=== PATIENT | male | born 2000 | race Caucasian/White ===

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

== ENCOUNTER 2018-02-05 12:04 | Emergency (ER) | payer BC ==
[~2018-02-05] VITALS: Ht 188 cm; Wt 95.1 kg
[2018-02-05 12:05] VITALS: BP 159/74; PULSE 78; TEMP 36.7; O2SAT 95; Ht 188 cm; Wt 95.1 kg
--- NOTE | 2018-02-05 12:38 | DIAGNOSTIC IMAGING REPORT ---
THORACIC SPINE 3 VIEWS ROUTINE HISTORY: 17 years-old Male Lifting weights, mid back pain acute mid back pain status post lifting weights. COMPARISON: None available TECHNIQUE: 5 views of the thoracic spine FINDINGS: There is 11 degrees dextroscoliosis of the thoracic spine measured from T5-T10. No acute fracture or subluxation is identified. No significant intervertebral disc space narrowing or degenerative changes identified. No opaque foreign body. Imaged lung reynoso appear clear. IMPRESSION: 1. No acute fracture or subluxation. 2. Mild dextroscoliosis of the thoracic spine. The above report was generated using voice recognition software. It may contain grammatical, syntax or spelling errors. Electronically signed by: Carlos Carcamo M.D. 02/05/2018 12:36 PM Dictated Date/Time: 02/05/2018 12:34 PM
--- NOTE | 2018-02-05 12:46 | EMERGENCY ROOM VISIT NOTE ---
History First contact with patient: 12:08 Chief Complaint: BACK PAIN Stated Complaint: BACK PAIN,TROUBLE BREATHING AND MOVING History of Present Illness The patient is a 17 year old male who presents to the Emergency Room with complaints of "back pain, trouble breathing and moving". The patient states that yesterday while doing a squatting exercise and lifting weights he developed a pain in his mid back. He notes that it is in the musculature between the shoulder blades and just inferior to this region. It is worse with turning. He notes he takes a deep breath and it is worse. He rates the pain as a 3/10. He notes that he has had this in the past 5 or 6 times and is usually given a muscle relaxer. He denies any trauma or injury to the area he has not fallen. There is no chest pain. There is no hemoptysis. No leg swelling. He notes that the pain developed as he was doing the lifting exercise with the weights. Review of Systems A complete 10-point Review of Systems was discussed with the patient, with pertinent positives and negatives listed in the History of Present Illness. All remaining Review of Systems questions can be considered negative unless otherwise specified. Past Medical/Surgical History Back pain Family History No pertinent Social History Smoking Status: Never Smoker Pt. lives locally Current/Historical Medications Scheduled PRN Cyclobenzaprine Hcl (Flexeril), 1 TAB PO TID PRN for Muscle Spasms Physical Exam Vital Signs Date Time Temp Pulse Resp B/P (MAP) Pulse Ox O2 Delivery O2 Flow Rate FiO2 02/05/18 12:05 36.7 78 18 159/74 95 Room Air Physical Exam VITAL SIGNS - Vital signs and nursing notes were reviewed. Stable. GENERAL -17-year-old appearing his stated age who is in no acute distress. Communicates well with provider and answers questions appropriately. SKIN - Without rashes. HEAD - NC/AT. NECK - Neck with FROM. LUNGS - Chest wall symmetric without accessory muscle use, intercostals retractions, or central cyanosis. Normal vesicular breath sounds CTA B/L. No wheezes, rales, or rhonchi appreciated. CARDIAC - RRR with S1/S2. No murmur, rubs, or gallops appreciated. MUSCULOSKELETAL: No tenderness of spine (cervical, thoracic, lumbar) however thoracic paraspinal tenderness and muscle spasm noted. EXTREMITIES - +5/5 strength noted in UE/LE bilaterally. NEUROLOGIC - Cranial nerves II through XII grossly intact. Sensory intact to light touch throughout. PSYCH - A&O, and cooperates fully with examiner. Pt is very pleasant and interacts well with examiner. Medical Decision & Procedures ER Provider Diagnostic Interpretation: THORACIC SPINE 3 VIEWS ROUTINE HISTORY: 17 years-old Male Lifting weights, mid back pain acute mid back pain status post lifting weights. COMPARISON: None available TECHNIQUE: 5 views of the thoracic spine FINDINGS: There is 11 degrees dextroscoliosis of the thoracic spine measured from T5-T10. No acute fracture or subluxation is identified. No significant intervertebral disc space narrowing or degenerative changes identified. No opaque foreign body. Imaged lung reynoso appear clear. IMPRESSION: 1. No acute fracture or subluxation. 2. Mild dextroscoliosis of the thoracic spine. The above report was generated using voice recognition software. It may contain grammatical, syntax or spelling errors. Electronically signed by: Carlos Carcamo M.D. 02/05/2018 12:36 PM Dictated Date/Time: 02/05/2018 12:34 PM Medical Decision Patient was seen and evaluated as above in room D6. He presents to us today with mid back pain. It occurred after lifting weights. Review was performed of nursing notes and vital signs. After obtaining a thorough history and physical examination the above work up was performed. X-ray was obtained to evaluate spacing and scoliosis was noted. No compression fracture. On exam he has paraspinous musculature tenderness in the thoracic spine consistent with that of a thoracic musculature strain/spasm. No fracture noted. No evidence of cauda equina. I do not suspect ME or PE. He will be treated with muscle relaxers. He is to use [id number] pain medication. He is to follow with [facility] for recheck or return with worsening. The patient was educated upon management, had questions answered prior to discharge, and was discharged home in good condition. In the evaluation and treatment of this patient the following differential diagnoses were entertained: Lumbar strain, thoracic strain, compression fracture , cauda equina syndrome, ME, PE, pneumothorax, among others. Impression Primary Impression: Strain of thoracic region Departure Information Dispostion Home / Self-Care Condition GOOD Prescriptions Cyclobenzaprine Hcl (FLEXERIL) 5 Mg Tab 1 TAB PO TID Y for Muscle Spasms for 5 Days, #15 TAB Prov: Bamat, Micheal W., PA-C 02/05/18 Referrals No Doctor, Assigned (PCP) Patient Instructions My [facility] Additional Instructions You have been treated in the Emergency Department for Back Pain. You have been prescribed Flexeril (cyclobenzaprine) 1-2 tabs orally, three times per day. Do NOT exceed 30 mg (6 tabs) per day. Take your first dose at bedtime as it can make you drowsy. Always take all medications as prescribed. For pain control, you can use the following [id number]-[id number] medicines (if >12 yo): - Regular strength (325mg/tab) Tylenol (acetaminophen) 2 tabs every 4-6 hours as needed. Do not exceed 12 tablets in a 24 hour period. Avoid taking more than 3 grams (3000 mg) of Tylenol per day. This includes any other sources of acetaminophen you may take on a regular basis. - Regular strength (200 mg/tab) Advil (ibuprofen) 1-2 tabs every 4-6 hours as needed. Do not exceed a dose of 3200 mg per day. If this is an acute injury, ice can be applied to the area of pain for the first 3 days to help decrease pain and inflammation. After the first 3 days, a heating pad can be used over the area for continued soothing relief. You should schedule a follow-up appointment in 2-3 days with your Primary Care Provider for further evaluation and treatment of your back pain. Please either call [facility] or follow at home with your family doctor for the back pain and the scoliosis. Please no heavy lifting for 1 week or until pain-free. Return to the Emergency Department if your current symptoms worsen despite treatment course outlined above, or if you develop any of the following symptoms : intractable pain despite aforementioned treatment course, loss of control of your bowel or bladder, numbness or tingling in your groin, or development of a fever. THORACIC SPINE 3 VIEWS ROUTINE HISTORY: 17 years-old Male Lifting weights, mid back pain acute mid back pain status post lifting weights. COMPARISON: None available TECHNIQUE: 5 views of the thoracic spine FINDINGS: There is 11 degrees dextroscoliosis of the thoracic spine measured from T5-T10. No acute fracture or subluxation is identified. No significant intervertebral disc space narrowing or degenerative changes identified. No opaque foreign body. Imaged lung reynoso appear clear.
[2018-02-05] MEDS ORDERED: CYCL5TAB PO (13:01)
== END 2018-02-05 13:08 | disposition home or self-care (01) ==
LOC: C.EDB 12:06 → C.EDD 13:08
DX: S29.012A Strain of muscle and tendon of back wall of thorax, initial encounter (principal); X50.0XXA Overexertion from strenuous movement or load, initial encounter